=== PATIENT | female | born 1985 | race Caucasian/White ===

== ENCOUNTER 2018-08-06 05:17 | Inpatient (IN) | payer BC, OTHER ==
[~2018-08-06] VITALS: Ht 172.7 cm; Wt 103.7 kg
--- NOTE | 2018-08-06 05:52 | PHYS DOC ---
Past Medical History Past Medical History: No Pertinent History (EDGARDO BRYANT MD) Past Surgical History: Cholecystectomy, Tonsillectomy (EDGARDO BRYANT MD) Alcohol Use: Occasionally Drug Use: None (EDGARDO BRYANT MD) Adult General Chief Complaint Chief Complaint: NAUSEA/VOMITING/DIARRHA HPI HPI Patient is a 33 year old female was presenting with nausea vomiting nonbloody. has not passed gas or had a bowel movement since pain started. brought in by ambulance multiple episodes of several. 8 the same food as everybody else apparently blood pressure was 100/60 with the paramedics symptoms are moderate slowly worsening with time onset a few hours prior to arrival. at home was getting hot, thought she was going to pain epigastric in nature, preceded the vomiting, radiates to the back. sharp comes and goes 8/10 in maximum , constant dull pain 3/10. no sick contacts (EDGARDO BRYANT MD) Review of Systems Review of Systems Constitutional: Eyes: Denies change in visual acuity, redness, or eye pain [] HENT: Denies nasal congestion or sore throat [] Respiratory: Denies cough or shortness of breath [] Cardiovascular: No additional information not addressed in HPI [] Neurologic: Denies headache, focal weakness or sensory changes [] Endocrine: Denies polyuria or polydipsia [] All other systems were reviewed and found to be within normal limits, except as documented in this note. (EDGARDO BRYANT MD) Current Medications Current Medications Current Medications Medications (Trade) Dose Ordered Sig/Muriel Start Time Stop Time Status Last Admin Dose Admin Ciprofloxacin/ Dextrose 200 ml @ 200 mls/hr 1X ONCE 08/06/18 09:30 08/06/18 10:29 Fentanyl Citrate (Fentanyl 2ml Vial) 75 mcg 1X ONCE 08/06/18 07:00 08/06/18 07:01 DC 08/06/18 07:10 75 MCG Info (CONTRAST GIVEN -- Rx MONITORING) 1 each PRN DAILY PRN 08/06/18 06:45 08/08/18 06:44 Iohexol (Omnipaque 300 Mg/ml) 75 ml 1X ONCE 08/06/18 07:00 08/06/18 07:01 DC 08/06/18 07:00 75 ML Metronidazole 100 ml @ 100 mls/hr 1X ONCE 08/06/18 08:45 08/06/18 09:44 08/06/18 09:25 100 MLS/HR Morphine Sulfate (Morphine Sulfate) 4 mg PRN Q3HRS PRN 08/06/18 09:15 08/07/18 09:14 Ondansetron HCl (Zofran) 4 mg PRN Q8HRS PRN 08/06/18 09:15 08/07/18 09:14 Sodium Chloride 1,000 ml @ 100 mls/hr Q10H 08/06/18 09:15 08/07/18 09:14 (AYDE MASSEY DO) Allergies Allergies Allergies Coded Allergies Type Severity Reaction Last Updated Verified No Known Drug Allergies 08/06/18 No (AYDE MASSEY DO) Physical Exam Physical Exam Constitutional: Well developed, well nourished, no acute distress, non-toxic appearance. [] HENT: Normocephalic, atraumatic, bilateral external ears normal, oropharynx dry wants, no oral exudates, nose normal. [] Eyes: PERRLA, EOMI, conjunctiva normal, no discharge. [] Neck: Normal range of motion, no tenderness, supple, no stridor. [] Pulmonary: Normal respiratory effort no increased work of breathing no obvious chest wall trauma Abdomen: Bowel sounds abnormal decreased, soft, ttp noted epigastrium, no masses , no pulsatile masses. [] Skin: Warm, dry, no erythema, no rash. [] Back: No tenderness, no CVA tenderness. [] Extremities: No tenderness, no cyanosis, no clubbing, ROM intact, no edema. [] Neurologic: Alert and oriented X 3, normal motor function, normal sensory function, no focal deficits noted. [] Psychologic: Affect normal, judgement normal, mood normal. [] (EDGARDO BRYANT MD) Current Patient Data Vital Signs Vital Signs Date Time Temp Pulse Resp B/P (MAP) Pulse Ox O2 Delivery O2 Flow Rate FiO2 08/06/18 08:25 20 97 Room Air 08/06/18 05:18 98.0 107 126/70 (88) 98.0 (AYDE MASSEY DO) Lab Values Laboratory Tests Test 08/06/18 05:24 White Blood Count 17.6 x10^3/uL (4.0-11.0) H Red Blood Count 4.71 x10^6/uL (3.50-5.40) Hemoglobin 14.5 g/dL (12.0-15.5) Hematocrit 42.8 % (36.0-47.0) Mean Corpuscular Volume 91 fL (79-100) Mean Corpuscular Hemoglobin 31 pg (25-35) Mean Corpuscular Hemoglobin Concent 34 g/dL (31-37) Red Cell Distribution Width 12.7 % (11.5-14.5) Platelet Count 262 x10^3/uL (140-400) Neutrophils (%) (Auto) 91 % (31-73) H Lymphocytes (%) (Auto) 4 % (24-48) L Monocytes (%) (Auto) 5 % (0-9) Eosinophils (%) (Auto) 0 % (0-3) Basophils (%) (Auto) 0 % (0-3) Neutrophils # (Auto) 16.0 x10^3uL (1.8-7.7) H Lymphocytes # (Auto) 0.7 x10^3/uL (1.0-4.8) L Monocytes # (Auto) 0.9 x10^3/uL (0.0-1.1) Eosinophils # (Auto) 0.0 x10^3/uL (0.0-0.7) Basophils # (Auto) 0.0 x10^3/uL (0.0-0.2) Segmented Neutrophils % 88 % (35-66) H Lymphocytes % 4 % (24-48) L Monocytes % 8 % (0-10) Platelet Estimate Adequate (ADEQUATE) Platelet Clumps, EDTA Present Sodium Level 143 mmol/L (136-145) Potassium Level 4.2 mmol/L (3.5-5.1) Chloride Level 104 mmol/L (98-107) Carbon Dioxide Level 28 mmol/L (21-32) Anion Gap 11 (6-14) Blood Urea Nitrogen 15 mg/dL (7-20) Creatinine 1.0 mg/dL (0.6-1.0) Estimated GFR (Cockcroft-Gault) 64.7 BUN/Creatinine Ratio 15 (6-20) Glucose Level 169 mg/dL (70-99) H Calcium Level 8.6 mg/dL (8.5-10.1) Total Bilirubin 0.6 mg/dL (0.2-1.0) Aspartate Amino Transferase (AST) 17 U/L (15-37) Alanine Aminotransferase (ALT) 32 U/L (14-59) Alkaline Phosphatase 75 U/L (46-116) Total Protein 7.5 g/dL (6.4-8.2) Albumin 3.8 g/dL (3.4-5.0) Albumin/Globulin Ratio 1.0 (1.0-1.7) Lipase 113 U/L (73-393) Laboratory Tests 08/06/18 05:24 Laboratory Tests 08/06/18 05:24 (AYDE MASSEY DO) Lab Values Laboratory Tests Test 08/06/18 05:24 White Blood Count 17.6 x10^3/uL (4.0-11.0) H Red Blood Count 4.71 x10^6/uL (3.50-5.40) Hemoglobin 14.5 g/dL (12.0-15.5) Hematocrit 42.8 % (36.0-47.0) Mean Corpuscular Volume 91 fL (79-100) Mean Corpuscular Hemoglobin 31 pg (25-35) Mean Corpuscular Hemoglobin Concent 34 g/dL (31-37) Red Cell Distribution Width 12.7 % (11.5-14.5) Platelet Count 262 x10^3/uL (140-400) Neutrophils (%) (Auto) 91 % (31-73) H Lymphocytes (%) (Auto) 4 % (24-48) L Monocytes (%) (Auto) 5 % (0-9) Eosinophils (%) (Auto) 0 % (0-3) Basophils (%) (Auto) 0 % (0-3) Neutrophils # (Auto) 16.0 x10^3uL (1.8-7.7) H Lymphocytes # (Auto) 0.7 x10^3/uL (1.0-4.8) L Monocytes # (Auto) 0.9 x10^3/uL (0.0-1.1) Eosinophils # (Auto) 0.0 x10^3/uL (0.0-0.7) Basophils # (Auto) 0.0 x10^3/uL (0.0-0.2) Segmented Neutrophils % 88 % (35-66) H Lymphocytes % 4 % (24-48) L Monocytes % 8 % (0-10) Platelet Estimate Adequate (ADEQUATE) Platelet Clumps, EDTA Present Sodium Level 143 mmol/L (136-145) Potassium Level 4.2 mmol/L (3.5-5.1) Chloride Level 104 mmol/L (98-107) Carbon Dioxide Level 28 mmol/L (21-32) Anion Gap 11 (6-14) Blood Urea Nitrogen 15 mg/dL (7-20) Creatinine 1.0 mg/dL (0.6-1.0) Estimated GFR (Cockcroft-Gault) 64.7 BUN/Creatinine Ratio 15 (6-20) Glucose Level 169 mg/dL (70-99) H Calcium Level 8.6 mg/dL (8.5-10.1) Total Bilirubin 0.6 mg/dL (0.2-1.0) Aspartate Amino Transferase (AST) 17 U/L (15-37) Alanine Aminotransferase (ALT) 32 U/L (14-59) Alkaline Phosphatase 75 U/L (46-116) Total Protein 7.5 g/dL (6.4-8.2) Albumin 3.8 g/dL (3.4-5.0) Albumin/Globulin Ratio 1.0 (1.0-1.7) Lipase 113 U/L (73-393) Laboratory Tests 08/06/18 05:24 Laboratory Tests 08/06/18 05:24 (EDGARDO BRYANT MD) EKG EKG [] (EDGARDO BRYANT MD) Radiology/Procedures Radiology/Procedures [] (EDGARDO BRYANT MD) Radiology/Procedures [facility] [address] [place], [place] [id number] IMAGING REPORT Signed PATIENT: AUTUMN GONZALEZ ACCOUNT: [id number] : 1985 LOCATION: ER AGE: 33 SEX: F EXAM STATUS: REG ER ORD. PHYSICIAN: EDGARDO BRYANT MD REASON: diffuse pain, vomiting, r/o sbo. wait for upreg/creatinine. PROCEDURE: CT ABD PELV W/ IV CONTRST ONLY PQRS Compliance statement: One or more of the following individualized dose reduction techniques were utilized for this examination: 1. Automated exposure control. 2. Adjustment of the mA and/or kV according to patient size. 3. Use of iterative reconstruction technique. Indication:Severe upper abdominal pain. No prior. Inj 75ml Omni 300 TECHNIQUE: CT abdomen and pelvis with IV contrast with multiplanar reformats. COMPARISON: None FINDINGS: Heart is normal in size. No pericardial or pleural effusion. Clear lung bases. Liver, spleen, pancreas, adrenals and kidneys are within normal limits. No enlarged retroperitoneal or pelvic adenopathy. No free pelvic fluid or ascites. No bowel obstruction. There is long segment circumferential wall thickening of the small bowel loops. Appendix is not seen. Anteverted uterus. Urinary bladder within normal limits. No pneumoperitoneum. No suspicious bony lesion. IMPRESSION: 1. No bowel obstruction. Long segment circumferential thickening of the small bowel may be secondary to enteritis. Electronically signed by: Luca Gonsalves DO (08/06/2018 8:22 AM) [facility] DICTATED and SIGNED BY: LUCA GONSALVES DO DATE: 08/06/18821 (AYDE MASSEY DO) Course & Med Decision Making Course & Med Decision Making Pertinent Labs and Imaging studies reviewed. (See chart for details) []n/v/abdo pain, no diarrhea. hx of abdo surgeries, decreased bowel sounds and no flatus will get labs, fluids,ct a/p s/o massey 6am (EDGARDO BRYANT MD) Dragon Disclaimer Dragon Disclaimer This electronic medical record was generated, in whole or in part, using a voice recognition dictation system. (EDGARDO BRYANT MD) Departure Departure Impression: Primary Impression: Nausea & vomiting Additional Impressions: Enteritis Intractable abdominal pain Disposition: 09 ADMITTED INPATIENT Admitting Physician: Aquiles Luna (AYDE MASSEY DO) Condition: STABLE Referrals: NO PCP (PCP) Scripts Hydrocodone Bit/Acetaminophen (HYDROCODONE-APAP 5-325 ) 1 Tab Tablet 1 TAB PO PRN Q4HRS PRN for PAIN for 6 Days, #15 TAB Prov: ISABELLA GIMENEZ MD 08/08/18 Lactobacillus Rhamnosus Gg (CULTURELLE) 1 Each Cap.sprink 1 CAP PO BID for Colon asya for 30 Days, #60 CAP Prov: ISABELLA GIMENEZ MD 08/08/18 [Pantoprazole] 40 MG TABLET.DR No Conflict Check 40 MG PO BIDAC for Reflux for 30 Days, #60 Prov: ISABELLA GIMENEZ MD 08/08/18 Bisacodyl (BISACODYL) 5 Mg Tablet. 10 MG PO PRN DAILY PRN for CONSTIPATION 3RD CHOICE for 10 Days, #10 TAB.SR Prov: ISABELLA GIMENEZ MD 08/08/18 Problem Qualifiers EDGARDO BRYANT MD Aug 06, 2018 05:52 AYDE MASSEY DO Aug 06, 2018 08:31
[2018-08-06 06:11] LABS: BASO % 0 % (0-3); EOS % 0 % (0-3); HEMATOCRIT 42.8 % (36.0-47.0); HEMOGLOBIN 14.5 g/dL (12.0-15.5); LYMPH # 0.7 x10^3/uL (1.0-4.8); LYMPH % 4 % (24-48); MEAN CORPUSCULAR HEMOGLOBIN 31 pg (25-35); MEAN CORPUSCULAR HGB CONC 34 g/dL (31-37); MEAN CORPUSCULAR VOLUME 91 fL (79-100); MONO # 0.9 x10^3/uL (0.0-1.1); MONO % 5 % (0-9); NEUT % 91 % (31-73); PLATELET COUNT 262 x10^3/uL (140-400); RED BLOOD COUNT 4.71 x10^6/uL (3.50-5.40); RED CELL DISTRIBUTION WIDTH 12.7 % (11.5-14.5); WHITE BLOOD COUNT 17.6 x10^3/uL (4.0-11.0)
[2018-08-06 06:25] LABS: CALCIUM 8.6 mg/dL (8.5-10.1); GFR 64.7; POTASSIUM 4.2 mmol/L (3.5-5.1)
[2018-08-06] MEDS ORDERED: IV NORMAL SALINE 1000ML BAG 1,000 ML IV ONE (06:30)
[2018-08-06] MEDS ORDERED: ONDANSETRON PF 4 MG/2 ML VIAL. IV ONE ×2 (06:30→09:30)
[2018-08-06] MEDS ORDERED: fentaNYL PF VIAL 100 MCG/2 ML VIAL IV ONE ×2 (06:30→07:00)
[2018-08-06 06:31] LABS: ALBUMIN 3.8 g/dL (3.4-5.0); TOTAL BILIRUBIN 0.6 mg/dL (0.2-1.0); TOTAL PROTEIN 7.5 g/dL (6.4-8.2)
[2018-08-06] MEDS ORDERED: CONTRAST GIVEN. MC PRN (06:45)
[2018-08-06] MEDS ORDERED: IOHEXOL 300 MG/ML 100ML VIAL. IV ONE (07:00)
[2018-08-06 08:15] LABS: % LYMPHS 4 % (24-48); % MONOS 8 % (0-10); % SEGS 88 % (35-66); PLT ESTIMATE ADEQUATE (ADEQUATE)
[2018-08-06 08:16] LABS: PLATELET CLUMP PRESENT
--- NOTE | 2018-08-06 08:23 | EKG ---
[facility] [address] [place] [address] Test Date: 2018-08-06 Test Time: 06:25:50 Pat Name: AUTUMN GONZALEZ Department: Room: Gender: F [employer] Counter Manager: : 1985 Requested By: EDGARDO BRYANT Order Number: [id number] Reading MD: Jaxon Ni MD Measurements Intervals [place] Rate: 102 P: 55 KS: 154 QRS: 23 QRSD: 86 T: 20 QT: 356 QTc: 468 Interpretive Statements SINUS TACHYCARDIA Electronically Signed On 08-08-2018 16:21:36 CDT by Jaxon iN MD
--- NOTE | 2018-08-06 08:25 | RAD ---
PQRS Compliance statement: One or more of the following individualized dose reduction techniques were utilized for this examination: 1. Automated exposure control. 2. Adjustment of the mA and/or kV according to patient size. 3. Use of iterative reconstruction technique. Indication:Severe upper abdominal pain. No prior. Inj 75ml Omni 300 TECHNIQUE: CT abdomen and pelvis with IV contrast with multiplanar reformats. COMPARISON: None FINDINGS: Heart is normal in size. No pericardial or pleural effusion. Clear lung bases. Liver, spleen, pancreas, adrenals and kidneys are within normal limits. No enlarged retroperitoneal or pelvic adenopathy. No free pelvic fluid or ascites. No bowel obstruction. There is long segment circumferential wall thickening of the small bowel loops. Appendix is not seen. Anteverted uterus. Urinary bladder within normal limits. No pneumoperitoneum. No suspicious bony lesion. IMPRESSION: 1. No bowel obstruction. Long segment circumferential thickening of the small bowel may be secondary to enteritis. Electronically signed by: Luca Gonsalves DO (08/06/2018 8:22 AM) [facility]
[2018-08-06] MEDS ORDERED: MORPHINE SULFATE 4 MG/ML VIAL. IV ONE (08:30)
[2018-08-06] MEDS ORDERED: ONDANSETRON PF 4 MG/2 ML VIAL. IV PRN (09:15)
[2018-08-06] MEDS ORDERED: CIPROFLOXACIN 400MG PREMIX 200 ML IV ONE (09:30)
[2018-08-06] MEDS: MORPHINE SULFATE 4 MG/ML VIAL. IV PRN ×4 (09:57→20:57)
[2018-08-06 11:00] VITALS: BP 108/53
[2018-08-06] MEDS: IV NORMAL SALINE 1000ML BAG 1,000 ML IV SCH ×2 (11:56→20:55)
[2018-08-06] MEDS: cefTRIAXone IV Push 1 GM VIAL. IVP SCH (11:57)
--- NOTE | 2018-08-06 12:10 | PDOC2 ---
GI CONSULT Reason For Consult: Enteritis, abd pain, n/v HPI: HPI: 33 y/o female admitted through ER. From [place] - visiting family in [place] area, mother Jessica present. Lunch from [employer] yesterday, felt a little ill throughout the afternoon, Tums helped. Then ate pizza for dinner. Awoke during the night, significant vomiting associated w/ upper/mid abdominal pain ( "tight wave" - radiates bilaterally to back). She "kept passing out" during this which apparently is not unusual for her when in pain. Recalls normal EKG within the past year. Occasional heartburn related to certain foods. No dysphagia. After cholecystectomy (for stones), had "complications" including n/v and diarrhea - those symptoms improved over the years; however, current symptoms are similar ( though less severe). No hematemesis, hematochezia, or melena. Last BM was normal yesterday - probiotics help keep her regular. Intentionally lost 8 pounds over the past month by avoiding carbs. No previous EGD or colonoscopy. No liver or pancreas history. PRN ibuprofen use for menstrual cramps and headaches. Labs significant for elevated WBC. CT noted possible enteritis. Looks like was given Flagyl in the ER, had Cipro ordered, but changed to Rocephin per primary. PMH: PMH: tonsillectomy, cholecystectomy FH: Family History: Cancer (maternal uncle - renal, MGF - lung, PGF - colon), Other (father - GB disease) Social History: Smoke: No ALCOHOL: occassional Drugs: None ROS: GEN: Denies fevers, chills, sweats HEENT: Denies blurred vision, sore throat CV: Denies chest pain RESP: Denies shortness of air, cough GI: Per HPI : Denies hematuria, dysuria ENDO: +weight loss NEURO: Denies confusion, dizziness MSK: Denies weakness, joint pain/swelling SKIN: Denies jaundice, pruritus Vitals: Vitals: Vital Signs Date Time Temp Pulse Resp B/P (MAP) Pulse Ox O2 Delivery O2 Flow Rate FiO2 08/06/18 11:29 18 93 Room Air 08/06/18 11:00 98.4 103 108/53 (71) 98.4 Labs: Labs: Laboratory Tests Test 08/06/18 05:24 White Blood Count 17.6 x10^3/uL (4.0-11.0) Red Blood Count 4.71 x10^6/uL (3.50-5.40) Hemoglobin 14.5 g/dL (12.0-15.5) Hematocrit 42.8 % (36.0-47.0) Mean Corpuscular Volume 91 fL (79-100) Mean Corpuscular Hemoglobin 31 pg (25-35) Mean Corpuscular Hemoglobin Concent 34 g/dL (31-37) Red Cell Distribution Width 12.7 % (11.5-14.5) Platelet Count 262 x10^3/uL (140-400) Neutrophils (%) (Auto) 91 % (31-73) Lymphocytes (%) (Auto) 4 % (24-48) Monocytes (%) (Auto) 5 % (0-9) Eosinophils (%) (Auto) 0 % (0-3) Basophils (%) (Auto) 0 % (0-3) Neutrophils # (Auto) 16.0 x10^3uL (1.8-7.7) Lymphocytes # (Auto) 0.7 x10^3/uL (1.0-4.8) Monocytes # (Auto) 0.9 x10^3/uL (0.0-1.1) Eosinophils # (Auto) 0.0 x10^3/uL (0.0-0.7) Basophils # (Auto) 0.0 x10^3/uL (0.0-0.2) Segmented Neutrophils % 88 % (35-66) Lymphocytes % 4 % (24-48) Monocytes % 8 % (0-10) Platelet Estimate Adequate (ADEQUATE) Platelet Clumps, EDTA Present Sodium Level 143 mmol/L (136-145) Potassium Level 4.2 mmol/L (3.5-5.1) Chloride Level 104 mmol/L (98-107) Carbon Dioxide Level 28 mmol/L (21-32) Anion Gap 11 (6-14) Blood Urea Nitrogen 15 mg/dL (7-20) Creatinine 1.0 mg/dL (0.6-1.0) Estimated GFR (Cockcroft-Gault) 64.7 BUN/Creatinine Ratio 15 (6-20) Glucose Level 169 mg/dL (70-99) Calcium Level 8.6 mg/dL (8.5-10.1) Total Bilirubin 0.6 mg/dL (0.2-1.0) Aspartate Amino Transf (AST/SGOT) 17 U/L (15-37) Alanine Aminotransferase (ALT/SGPT) 32 U/L (14-59) Alkaline Phosphatase 75 U/L (46-116) Total Protein 7.5 g/dL (6.4-8.2) Albumin 3.8 g/dL (3.4-5.0) Albumin/Globulin Ratio 1.0 (1.0-1.7) Lipase 113 U/L (73-393) Allergies: Coded Allergies: No Known Drug Allergies (Unverified , 08/06/18) Medications: Current Medications Medications (Trade) Dose Ordered Sig/Muriel Route PRN Reason Start Time Stop Time Status Last Admin Dose Admin Sodium Chloride 1,000 ml @ 1,000 mls/hr 1X ONCE IV 08/06/18 06:30 08/06/18 07:29 DC 08/06/18 06:20 Ondansetron HCl (Zofran) 4 mg 1X ONCE IV 08/06/18 06:30 08/06/18 06:31 DC 08/06/18 06:18 Fentanyl Citrate (Fentanyl 2ml Vial) 50 mcg 1X ONCE IV 08/06/18 06:30 08/06/18 06:31 DC 08/06/18 06:19 Iohexol (Omnipaque 300 Mg/ml) 75 ml 1X ONCE IV 08/06/18 07:00 08/06/18 07:01 DC 08/06/18 07:00 Fentanyl Citrate (Fentanyl 2ml Vial) 75 mcg 1X ONCE IV 08/06/18 07:00 08/06/18 07:01 DC 08/06/18 07:10 Morphine Sulfate (Morphine Sulfate) 4 mg 1X ONCE IV 08/06/18 08:30 08/06/18 08:31 DC 08/06/18 08:25 Metronidazole 100 ml @ 100 mls/hr 1X ONCE IV 08/06/18 08:45 08/06/18 09:44 DC 08/06/18 09:25 Ondansetron HCl (Zofran) 8 mg 1X ONCE IV 08/06/18 09:30 08/06/18 09:31 DC 08/06/18 09:22 Morphine Sulfate (Morphine Sulfate) 4 mg PRN Q3HRS PRN IV PAIN 08/06/18 09:15 08/07/18 09:14 08/06/18 11:29 Imaging: Imaging: CT A/P FINDINGS: Heart is normal in size. No pericardial or pleural effusion. Clear lung bases. Liver, spleen, pancreas, adrenals and kidneys are within normal limits. No enlarged retroperitoneal or pelvic adenopathy. No free pelvic fluid or ascites. No bowel obstruction. There is long segment circumferential wall thickening of the small bowel loops. Appendix is not seen. Anteverted uterus. Urinary bladder within normal limits. No pneumoperitoneum. No suspicious bony lesion. IMPRESSION: 1. No bowel obstruction. Long segment circumferential thickening of the small bowel may be secondary to enteritis. PE: GEN: NAD HEENT: Atraumatic, PERRL LUNGS: CTAB HEART: RRR ABD: BS quiet, S/ND, epigastric/periumbilical discomfort - less to BUQ EXTREMITY: No edema SKIN: No rashes, no jaundice NEURO/PSYCH: A & O 3 A/P: A/P: Vomiting, abd pain, ?syncope Leukocytosis Abnormal CT Occasional heartburn S/p cholecystectomy -- ?infectious Supportive care - can try clears, will defer IVF to primary. Empiric acid-back feeder plywood layup line - IV for now, can change to PO as able. Will review atbx w/ Dr. Dash. Defer ?syncope to Dr. Luna. MARLA QUIROGA Aug 06, 2018 12:10
--- NOTE | 2018-08-06 12:57 | HP ---
ADMIT DATE: 08/06/2018 CHIEF COMPLAINT: Abdominal pain, nausea, vomiting and diarrhea. HISTORY OF PRESENT ILLNESS: The patient is a pleasant 33-year-old healthy female who presents with the above chief complaints. She denies being around any people that have any gastrointestinal symptoms, but her was came on yesterday. She rates it 10. She has associated anxiety. Food makes it worse. Sitting still makes it better. I have discussed the case with the ER physician. We are going to admit the patient and consult GI. It should be noted that her CAT scan is showing enteritis and she has a leukocytosis of 17,000. PAST MEDICAL HISTORY: Tonsillectomy, cholecystectomy. ALLERGIES: None. FAMILY HISTORY: Hypertension. SOCIAL HISTORY: She does not drink, smoke or take drugs. She works from home, doing customer service. MEDICATIONS: Reviewed, please refer to the MRAD. REVIEW OF SYSTEMS: GENERAL: No history of weight change, weakness or fevers. SKIN: No bruising, hair changes or rashes. EYES: No blurred, double or loss of vision. NOSE AND THROAT: No history of nosebleeds, hoarseness or sore throat. HEART: No history of palpitations, chest pain or shortness of breath on exertion. LUNGS: Denies cough, hemoptysis, wheezing or shortness of breath. GASTROINTESTINAL: She complains of abdominal pain. GENITOURINARY: No history of frequency, urgency, hesitancy or nocturia. NEUROLOGIC: Denies history of numbness, tingling, tremor or weakness. PSYCHIATRIC: No history of panic, anxiety or depression. ENDOCRINE: No history of heat or cold intolerance, polyuria or polydipsia. EXTREMITIES: Denies muscle weakness, joint pain, pain on walking or stiffness. PHYSICAL EXAMINATION: VITAL SIGNS: Temperature afebrile, pulse 98, respirations 18, blood pressure 140/90. GENERAL: She is alert. HEART: Normal S1, S2. LUNGS: Clear. ABDOMEN: Soft. EXTREMITIES: No edema. SKIN: No rash. ENDOCRINE: No thyromegaly. LYMPHATICS: No cervical nodes. HEMATOPOIETIC: No bruising. PSYCHIATRIC: She is stable. LABORATORY DATA: White count 17. Her glucose is 169. ASSESSMENT AND PLAN: Enteritis with leukocytosis and hyperglycemia. The patient has been admitted. We will start IV Rocephin, consult GI, IV fluids, deep venous thrombosis prophylaxis, p.r.n. suze Vasquez.rAshlynn. narcotics, home medications. JASWANT HODGES DO DR: ELIAS/zoila JOB#: [id number] / [id number]
[2018-08-06] MEDS: PANTOPRAZOLE IV PUSH 40 MG VIAL. IVP SCH (14:06)
[2018-08-06 15:00] VITALS: BP 105/56
[2018-08-06 19:00] VITALS: BP 104/57
[2018-08-06] MEDS: LACTOBACILLUS RHAMNOSUS GG 1 CAPSULE. PO SCH (20:55)
[2018-08-06 21:12] LABS: BILIRUBIN,URINE SMALL (NEG); CLARITY,URINE CLOUDY; COLOR,URINE YELLOW; NITRITE,URINE NEGATIVE (NEG); PH,URINE 5.5; PROTEIN,URINE NEGATIVE (NEG-TRACE)
[2018-08-06 21:18] LABS: SQUAMOUS EPITHELIAL CELL,UR MANY /LPF
[2018-08-06 21:20] LABS: BACTERIA,URINE FEW /HPF (0-FEW)
[2018-08-06 23:00] VITALS: BP 102/56
[2018-08-07 03:00] VITALS: BP 116/61
[2018-08-07 04:05] LABS: HEMATOCRIT 34.4 % (36.0-47.0); HEMOGLOBIN 11.6 g/dL (12.0-15.5); RED BLOOD COUNT 3.76 x10^6/uL (3.50-5.40); RED CELL DISTRIBUTION WIDTH 13.1 % (11.5-14.5); WHITE BLOOD COUNT 8.1 x10^3/uL (4.0-11.0)
[2018-08-07 04:28] LABS: ALBUMIN 2.8 g/dL (3.4-5.0); ALBUMIN/GLOBULIN RATIO 0.9 (1.0-1.7); CALCIUM 7.6 mg/dL (8.5-10.1); CREATININE 0.8 mg/dL (0.6-1.0); GFR 83.7; POTASSIUM 3.2 mmol/L (3.5-5.1); TOTAL BILIRUBIN 0.6 mg/dL (0.2-1.0)
[2018-08-07] MEDS: IV NORMAL SALINE 1000ML BAG 1,000 ML IV SCH ×3 (06:03→20:26)
[2018-08-07 07:00] VITALS: BP 100/53
[2018-08-07] MEDS: PANTOPRAZOLE IV PUSH 40 MG VIAL. IVP SCH (07:16)
[2018-08-07] MEDS: MORPHINE SULFATE 4 MG/ML VIAL. IV PRN (07:45)
--- NOTE | 2018-08-07 07:55 | PDOC ---
PROGRESS NOTES Chief Complaint Chief Complaint Vomiting, abd pain, ?syncope Leukocytosis Abnormal CT Occasional heartburn S/p cholecystectomy History of Present Illness History of Present Illness 33 y/o female admitted through ER. From [place] - visiting family in area, present. Lunch from [employer] day prior to admit, felt a little ill throughout the afternoon, Tums helped. Then ate pizza for dinner. Awoke during the night, significant vomiting associated w/ upper/mid abdominal pain, radiated bilaterally to back. She "kept passing out" during this which apparently is not unusual for her when in pain. Recalls normal EKG within the past year. Occasional heartburn related to certain foods. No dysphagia. After cholecystectomy (for stones), had n/v and diarrhea. No hematemesis, hematochezia , or melena. Last BM was normal day prior to admit - probiotics help keep her regular. Intentionally lost 8 pounds over the past month by avoiding carbs. No previous EGD or colonoscopy. No liver or pancreas history. PRN ibuprofen use for menstrual cramps and headaches. Labs significant for elevated WBC. CT noted possible enteritis. Looks like was given Flagyl in the ER and Cipro ordered, but changed to Rocephin after she developed a facial rash. Feeling better today. Tolerating clears w/o vomiting though has some nausea. Says not drinking a whole lot. Upper abd pain is better. No stools. has questions about IBS vs IBD. Facial rash is much better. Plan: ADAT F/u GI recs Transition to oral pain medications Possible discharge later today, early tomorrow morning. Vitals Vitals Vital Signs Date Time Temp Pulse Resp B/P (MAP) Pulse Ox O2 Delivery O2 Flow Rate FiO2 08/07/18 07:45 18 Room Air 08/07/18 03:00 98.7 79 116/61 (60) 96 98.7 Physical Exam General: Alert, Oriented X3, Cooperative, mild distress Heart: Regular rate, Normal S1, Normal S2, No murmurs, Gallops Lungs: Clear Abdomen: Normal bowel sounds, Soft, No hepatosplenomegaly, No masses, Other ( Mild LLQ tender) Extremities: No clubbing, No cyanosis, No edema, Normal pulses Skin: No rashes, No breakdown, No significant lesion Labs LABS Laboratory Tests Test 08/06/18 21:01 08/07/18 02:35 Urine Collection Type Unknown Urine Color Yellow Urine Clarity Cloudy Urine pH 5.5 Urine Specific [place] >=1.030 Urine Protein Negative mg/dL (NEG-TRACE) Urine Glucose (UA) Negative mg/dL (NEG) Urine Ketones (Stick) 15 mg/dL (NEG) Urine Blood Negative (NEG) Urine Nitrite Negative (NEG) Urine Bilirubin Small (NEG) Urine Urobilinogen Dipstick 1.0 mg/dL (0.2 mg/dL) Urine Leukocyte Esterase Negative (NEG) Urine RBC 1-2 /HPF (0-2) Urine WBC 1-4 /HPF (0-4) Urine Squamous Epithelial Cells Many /LPF Urine Bacteria Few /HPF (0-FEW) Urine Mucus Marked /LPF White Blood Count 8.1 x10^3/uL (4.0-11.0) Red Blood Count 3.76 x10^6/uL (3.50-5.40) Hemoglobin 11.6 g/dL (12.0-15.5) Hematocrit 34.4 % (36.0-47.0) Mean Corpuscular Volume 91 fL (79-100) Mean Corpuscular Hemoglobin 31 pg (25-35) Mean Corpuscular Hemoglobin Concent 34 g/dL (31-37) Red Cell Distribution Width 13.1 % (11.5-14.5) Platelet Count 208 x10^3/uL (140-400) Sodium Level 143 mmol/L (136-145) Potassium Level 3.2 mmol/L (3.5-5.1) Chloride Level 107 mmol/L (98-107) Carbon Dioxide Level 28 mmol/L (21-32) Anion Gap 8 (6-14) Blood Urea Nitrogen 8 mg/dL (7-20) Creatinine 0.8 mg/dL (0.6-1.0) Estimated GFR (Cockcroft-Gault) 83.7 BUN/Creatinine Ratio 10 (6-20) Glucose Level 94 mg/dL (70-99) Calcium Level 7.6 mg/dL (8.5-10.1) Total Bilirubin 0.6 mg/dL (0.2-1.0) Aspartate Amino Transf (AST/SGOT) 18 U/L (15-37) Alanine Aminotransferase (ALT/SGPT) 24 U/L (14-59) Alkaline Phosphatase 54 U/L (46-116) Total Protein 6.0 g/dL (6.4-8.2) Albumin 2.8 g/dL (3.4-5.0) Albumin/Globulin Ratio 0.9 (1.0-1.7) Assessment and Plan Assessmemt and Plan Problems Medical Problems: (1) Enteritis Status: Acute (2) Intractable abdominal pain Status: Acute (3) Nausea & vomiting Status: Acute Comment Review of Relevant I have reviewed the following items ulpe (where applicable) has been applied. Labs Laboratory Tests Test 08/06/18 05:24 08/06/18 21:01 08/07/18 02:35 White Blood Count 17.6 x10^3/uL (4.0-11.0) 8.1 x10^3/uL (4.0-11.0) Red Blood Count 4.71 x10^6/uL (3.50-5.40) 3.76 x10^6/uL (3.50-5.40) Hemoglobin 14.5 g/dL (12.0-15.5) 11.6 g/dL (12.0-15.5) Hematocrit 42.8 % (36.0-47.0) 34.4 % (36.0-47.0) Mean Corpuscular Volume 91 fL (79-100) 91 fL (79-100) Mean Corpuscular Hemoglobin 31 pg (25-35) 31 pg (25-35) Mean Corpuscular Hemoglobin Concent 34 g/dL (31-37) 34 g/dL (31-37) Red Cell Distribution Width 12.7 % (11.5-14.5) 13.1 % (11.5-14.5) Platelet Count 262 x10^3/uL (140-400) 208 x10^3/uL (140-400) Neutrophils (%) (Auto) 91 % (31-73) Lymphocytes (%) (Auto) 4 % (24-48) Monocytes (%) (Auto) 5 % (0-9) Eosinophils (%) (Auto) 0 % (0-3) Basophils (%) (Auto) 0 % (0-3) Neutrophils # (Auto) 16.0 x10^3uL (1.8-7.7) Lymphocytes # (Auto) 0.7 x10^3/uL (1.0-4.8) Monocytes # (Auto) 0.9 x10^3/uL (0.0-1.1) Eosinophils # (Auto) 0.0 x10^3/uL (0.0-0.7) Basophils # (Auto) 0.0 x10^3/uL (0.0-0.2) Segmented Neutrophils % 88 % (35-66) Lymphocytes % 4 % (24-48) Monocytes % 8 % (0-10) Platelet Estimate Adequate (ADEQUATE) Platelet Clumps, EDTA Present Sodium Level 143 mmol/L (136-145) 143 mmol/L (136-145) Potassium Level 4.2 mmol/L (3.5-5.1) 3.2 mmol/L (3.5-5.1) Chloride Level 104 mmol/L (98-107) 107 mmol/L (98-107) Carbon Dioxide Level 28 mmol/L (21-32) 28 mmol/L (21-32) Anion Gap 11 (6-14) 8 (6-14) Blood Urea Nitrogen 15 mg/dL (7-20) 8 mg/dL (7-20) Creatinine 1.0 mg/dL (0.6-1.0) 0.8 mg/dL (0.6-1.0) Estimated GFR (Cockcroft-Gault) 64.7 83.7 BUN/Creatinine Ratio 15 (6-20) 10 (6-20) Glucose Level 169 mg/dL (70-99) 94 mg/dL (70-99) Calcium Level 8.6 mg/dL (8.5-10.1) 7.6 mg/dL (8.5-10.1) Total Bilirubin 0.6 mg/dL (0.2-1.0) 0.6 mg/dL (0.2-1.0) Aspartate Amino Transf (AST/SGOT) 17 U/L (15-37) 18 U/L (15-37) Alanine Aminotransferase (ALT/SGPT) 32 U/L (14-59) 24 U/L (14-59) Alkaline Phosphatase 75 U/L (46-116) 54 U/L (46-116) Total Protein 7.5 g/dL (6.4-8.2) 6.0 g/dL (6.4-8.2) Albumin 3.8 g/dL (3.4-5.0) 2.8 g/dL (3.4-5.0) Albumin/Globulin Ratio 1.0 (1.0-1.7) 0.9 (1.0-1.7) Lipase 113 U/L (73-393) Urine Collection Type Unknown Urine Color Yellow Urine Clarity Cloudy Urine pH 5.5 Urine Specific [place] >=1.030 Urine Protein Negative mg/dL (NEG-TRACE) Urine Glucose (UA) Negative mg/dL (NEG) Urine Ketones (Stick) 15 mg/dL (NEG) Urine Blood Negative (NEG) Urine Nitrite Negative (NEG) Urine Bilirubin Small (NEG) Urine Urobilinogen Dipstick 1.0 mg/dL (0.2 mg/dL) Urine Leukocyte Esterase Negative (NEG) Urine RBC 1-2 /HPF (0-2) Urine WBC 1-4 /HPF (0-4) Urine Squamous Epithelial Cells Many /LPF Urine Bacteria Few /HPF (0-FEW) Urine Mucus Marked /LPF Laboratory Tests Test 08/06/18 21:01 08/07/18 02:35 Urine Collection Type Unknown Urine Color Yellow Urine Clarity Cloudy Urine pH 5.5 Urine Specific [place] >=1.030 Urine Protein Negative mg/dL (NEG-TRACE) Urine Glucose (UA) Negative mg/dL (NEG) Urine Ketones (Stick) 15 mg/dL (NEG) Urine Blood Negative (NEG) Urine Nitrite Negative (NEG) Urine Bilirubin Small (NEG) Urine Urobilinogen Dipstick 1.0 mg/dL (0.2 mg/dL) Urine Leukocyte Esterase Negative (NEG) Urine RBC 1-2 /HPF (0-2) Urine WBC 1-4 /HPF (0-4) Urine Squamous Epithelial Cells Many /LPF Urine Bacteria Few /HPF (0-FEW) Urine Mucus Marked /LPF White Blood Count 8.1 x10^3/uL (4.0-11.0) Red Blood Count 3.76 x10^6/uL (3.50-5.40) Hemoglobin 11.6 g/dL (12.0-15.5) Hematocrit 34.4 % (36.0-47.0) Mean Corpuscular Volume 91 fL (79-100) Mean Corpuscular Hemoglobin 31 pg (25-35) Mean Corpuscular Hemoglobin Concent 34 g/dL (31-37) Red Cell Distribution Width 13.1 % (11.5-14.5) Platelet Count 208 x10^3/uL (140-400) Sodium Level 143 mmol/L (136-145) Potassium Level 3.2 mmol/L (3.5-5.1) Chloride Level 107 mmol/L (98-107) Carbon Dioxide Level 28 mmol/L (21-32) Anion Gap 8 (6-14) Blood Urea Nitrogen 8 mg/dL (7-20) Creatinine 0.8 mg/dL (0.6-1.0) Estimated GFR (Cockcroft-Gault) 83.7 BUN/Creatinine Ratio 10 (6-20) Glucose Level 94 mg/dL (70-99) Calcium Level 7.6 mg/dL (8.5-10.1) Total Bilirubin 0.6 mg/dL (0.2-1.0) Aspartate Amino Transf (AST/SGOT) 18 U/L (15-37) Alanine Aminotransferase (ALT/SGPT) 24 U/L (14-59) Alkaline Phosphatase 54 U/L (46-116) Total Protein 6.0 g/dL (6.4-8.2) Albumin 2.8 g/dL (3.4-5.0) Albumin/Globulin Ratio 0.9 (1.0-1.7) Medications Current Medications Sodium Chloride 1,000 ml @ 1,000 mls/hr 1X ONCE IV Last administered on at 06:20; Start 08/06/18 at 06:30; Stop 08/06/18 at 07:29; Status DC Ondansetron HCl (Zofran) 4 mg 1X ONCE IV Last administered on 08/06/18at 06:18 ; Start 08/06/18 at 06:30; Stop 08/06/18 at 06:31; Status DC Fentanyl Citrate (Fentanyl 2ml Vial) 50 mcg 1X ONCE IV Last administered on at 06:19; Start 08/06/18 at 06:30; Stop 08/06/18 at 06:31; Status DC Iohexol (Omnipaque 300 Mg/ml) 75 ml 1X ONCE IV Last administered on 08/06/18at 07:00; Start 08/06/18 at 07:00; Stop 08/06/18 at 07:01; Status DC Info (CONTRAST GIVEN -- Rx MONITORING) 1 each PRN DAILY PRN MC SEE COMMENTS; Start 08/06/18 at 06:45; Stop 08/08/18 at 06:44 Fentanyl Citrate (Fentanyl 2ml Vial) 75 mcg 1X ONCE IV Last administered on 07:10; Start 08/06/18 at 07:00; Stop 08/06/18 at 07:01; Status DC Morphine Sulfate (Morphine Sulfate) 4 mg 1X ONCE IV Last administered on 08:25; Start 08/06/18 at 08:30; Stop 08/06/18 at 08:31; Status DC Metronidazole 100 ml @ 100 mls/hr 1X ONCE IV Last administered on 08/06/18 09:25; Start 08/06/18 at 08:45; Stop 08/06/18 at 09:44; Status DC Ondansetron HCl (Zofran) 8 mg 1X ONCE IV Last administered on 08/06/18 09:22 ; Start 08/06/18 at 09:30; Stop 08/06/18 at 09:31; Status DC Ondansetron HCl (Zofran) 4 mg PRN Q8HRS PRN IV NAUSEA/VOMITING Last administered on 08/07/18 07:27; Start 08/06/18 at 09:15; Stop 08/07/18 at 09:14 Morphine Sulfate (Morphine Sulfate) 4 mg PRN Q3HRS PRN IV PAIN Last administered on 08/07/18 07:45; Start 08/06/18 at 09:15; Stop 08/07/18 at 09:14 Sodium Chloride 1,000 ml @ 100 mls/hr Q10H IV Last administered on 08/07/18 06:03; Start 08/06/18 at 09:15; Stop 08/07/18 at 09:14 Ciprofloxacin/ Dextrose 200 ml @ 200 mls/hr 1X ONCE IV Last administered on at 14:03; Start 08/06/18 at 09:30; Stop 08/06/18 at 10:29; Status DC Ceftriaxone Sodium (Rocephin) 1 gm Q24H IVP Last administered on 08/06/18at 11: 57; Start 08/06/18 at 11:00 Pantoprazole Sodium (PROTONIX VIAL for IV PUSH) 40 mg DAILYAC IVP Last administered on 08/07/18at 07:16; Start 08/06/18 at 12:30 Lactobacillus Rhamnosus (Culturelle) 1 cap BID PO Last administered on at 20:55; Start 08/06/18 at 21:00 Vitals/I & O Vital Sign - Last 24 Hours 08/06/18 08/06/18 08/06/18 08/06/18 08:20 08:25 09:00 09:34 Pulse 102 104 106 Resp 20 20 20 20 B/P (MAP) 130/60 (83) 132/62 (85) 129/63 (85) Pulse Ox 94 97 95 94 O2 Delivery Room Air Room Air Room Air Room Air 08/06/18 08/06/18 08/06/18 08/06/18 09:57 11:00 11:10 11:29 Temp 98.4 98.4 Pulse 103 Resp 14 18 B/P (MAP) 108/53 (71) Pulse Ox 96 93 93 O2 Delivery Room Air Room Air Room Air Room Air 08/06/18 08/06/18 08/06/18 08/06/18 15:00 15:17 19:00 20:08 Temp 98.3 98.5 98.3 98.5 Pulse 100 83 Resp 18 20 20 B/P (MAP) 105/56 (72) 104/57 (73) Pulse Ox 94 94 95 O2 Delivery Room Air Room Air Room Air Room Air 08/06/18 08/06/18 08/06/18 08/07/18 20:57 21:50 23:00 03:00 Temp 98.7 98.7 98.7 98.7 Pulse 74 79 Resp 18 18 20 20 B/P (MAP) 102/56 (71) 116/61 (79) Pulse Ox 95 95 93 96 O2 Delivery Room Air Room Air Room Air Room Air 08/07/18 07:45 Resp 18 O2 Delivery Room Air Intake and Output 08/06/18 08/06/18 08/07/18 14:59 22:59 06:59 Intake Total 1100 ml 240 ml 500 ml Output Total 200 ml Balance 1100 ml 40 ml 500 ml ISABELLA GIMENEZ MD Aug 07, 2018 07:55
[2018-08-07] MEDS: LACTOBACILLUS RHAMNOSUS GG 1 CAPSULE. PO SCH ×2 (09:26→20:26)
--- NOTE | 2018-08-07 09:36 | PDOC ---
Subjective: Subjective: Feeling better today. Tolerating clears w/o vomiting though has some nausea. Says not drinking a whole lot. Upper abd pain is better. No stools. has questions about IBS vs IBD. Facial rash is much better. Objective: Vital Signs: Vital Signs Date Time Temp Pulse Resp B/P (MAP) Pulse Ox O2 Delivery O2 Flow Rate FiO2 08/07/18 08:15 18 Room Air 08/07/18 07:00 98.1 69 100/53 (69) 95 98.1 Labs: Laboratory Tests Test 08/06/18 21:01 08/07/18 02:35 Urine Collection Type Unknown Urine Color Yellow Urine Clarity Cloudy Urine pH 5.5 Urine Specific [place] >=1.030 Urine Protein Negative mg/dL Urine Glucose (UA) Negative mg/dL Urine Ketones (Stick) 15 mg/dL Urine Blood Negative Urine Nitrite Negative Urine Bilirubin Small Urine Urobilinogen Dipstick 1.0 mg/dL Urine Leukocyte Esterase Negative Urine RBC 1-2 /HPF Urine WBC 1-4 /HPF Urine Squamous Epithelial Cells Many /LPF Urine Bacteria Few /HPF Urine Mucus Marked /LPF White Blood Count 8.1 x10^3/uL Red Blood Count 3.76 x10^6/uL Hemoglobin 11.6 g/dL Hematocrit 34.4 % Mean Corpuscular Volume 91 fL Mean Corpuscular Hemoglobin 31 pg Mean Corpuscular Hemoglobin Concent 34 g/dL Red Cell Distribution Width 13.1 % Platelet Count 208 x10^3/uL Sodium Level 143 mmol/L Potassium Level 3.2 mmol/L Chloride Level 107 mmol/L Carbon Dioxide Level 28 mmol/L Anion Gap 8 Blood Urea Nitrogen 8 mg/dL Creatinine 0.8 mg/dL Estimated GFR (Cockcroft-Gault) 83.7 BUN/Creatinine Ratio 10 Glucose Level 94 mg/dL Calcium Level 7.6 mg/dL Total Bilirubin 0.6 mg/dL Aspartate Amino Transf (AST/SGOT) 18 U/L Alanine Aminotransferase (ALT/SGPT) 24 U/L Alkaline Phosphatase 54 U/L Total Protein 6.0 g/dL Albumin 2.8 g/dL Albumin/Globulin Ratio 0.9 PE: GEN: NAD LUNGS: HEART: ABD: NEURO/PSYCH: A & O 3 A/P: Nausea, upper abd discomfort Abnormal CT w/ enteritis Facial rash - better Hypokalemia - per primary -- Better today - tolerating clears though not eager to eat more yet. Discussed advancing diet as tolerated. She also mentions plans to transition to PO pain meds. When tolerating diet and pain managed w/ PO meds, okay to DC per primary. Okay to continue PPI. Follow-up w/ GI in [place] PRN. MARLA QUIROGA Aug 07, 2018 09:36
[2018-08-07] MEDS: cefTRIAXone IV Push 1 GM VIAL. IVP SCH (10:34)
[2018-08-07 11:00] VITALS: BP 111/62
[2018-08-07] MEDS ORDERED: HYDROcodone/APAP 5/325MG 1 TAB TABLET PO PRN (11:45)
[2018-08-07] MEDS ORDERED: SENNOSIDES/DOCUSATE 8.6/50MG TABLET. PO PRN (11:45)
[2018-08-07] MEDS ORDERED: ONDANSETRON PF 4 MG/2 ML VIAL. IV PRN (11:45)
[2018-08-07] MEDS ORDERED: POLYETHYLENE GLYCOL 3350 17 GM PACKET. PO PRN (11:45)
[2018-08-07] MEDS: MORPHINE SULFATE 2 MG/ML VIAL. IV PRN (11:51)
--- NOTE | 2018-08-07 12:16 | NUR ---
SW following. Discussed with RN, pt is from out of town. RN advised no SW needs at this time. SW will continue to follow.
[2018-08-07] MEDS ORDERED: POTASSIUM CHLORIDE 20 MEQ TABLET.ER. PO ONE (13:15)
[2018-08-07 15:00] VITALS: BP 111/59
[2018-08-07 19:00] VITALS: BP 125/74
[2018-08-07 23:00] VITALS: BP 115/72
[2018-08-08 03:00] VITALS: BP 108/69
[2018-08-08] MEDS: MORPHINE SULFATE 2 MG/ML VIAL. IV PRN (03:13)
[2018-08-08] MEDS: IV NORMAL SALINE 1000ML BAG 1,000 ML IV SCH (06:18)
[2018-08-08 07:00] VITALS: BP 124/71
[2018-08-08] MEDS: PANTOPRAZOLE IV PUSH 40 MG VIAL. IVP SCH (07:39)
--- NOTE | 2018-08-08 07:56 | PDOC ---
PROGRESS NOTES Chief Complaint Chief Complaint Vomiting, abd pain, ?syncope Leukocytosis Abnormal CT Occasional heartburn S/p cholecystectomy History of Present Illness History of Present Illness 33 y/o female admitted through ER. From [place] - visiting family in area, present. Lunch from [employer] day prior to admit, felt a little ill throughout the afternoon, Tums helped. Then ate pizza for dinner. Awoke during the night, significant vomiting associated w/ upper/mid abdominal pain, radiated bilaterally to back. She "kept passing out" during this which apparently is not unusual for her when in pain. Recalls normal EKG within the past year. Occasional heartburn related to certain foods. No dysphagia. After cholecystectomy (for stones), had n/v and diarrhea. No hematemesis, hematochezia , or melena. Last BM was normal day prior to admit - probiotics help keep her regular. Intentionally lost 8 pounds over the past month by avoiding carbs. No previous EGD or colonoscopy. No liver or pancreas history. PRN ibuprofen use for menstrual cramps and headaches. Labs significant for elevated WBC. CT noted possible enteritis. Looks like was given Flagyl in the ER and Cipro ordered, but changed to Rocephin after she developed a facial rash. Feeling better today. Tolerating clears w/o vomiting though has some nausea. Says not drinking a whole lot. Upper abd pain is better. No stools. has questions about IBS vs IBD. Facial rash is much better. Mag was low and K was low, replacement completed Plan: ADAT F/u GI recs Transition to oral pain medications Possible discharge later today, early tomorrow morning. Vitals Vitals Vital Signs Date Time Temp Pulse Resp B/P (MAP) Pulse Ox O2 Delivery O2 Flow Rate FiO2 08/08/18 03:13 Room Air 08/08/18 03:00 97.9 68 16 108/69 (82) 97 97.9 Physical Exam General: Alert, Oriented X3, Cooperative, mild distress Heart: Regular rate, Normal S1, Normal S2, No murmurs, Gallops Lungs: Clear Abdomen: Normal bowel sounds, Soft, No hepatosplenomegaly, No masses, Other ( Mild LLQ tender) Extremities: No clubbing, No cyanosis, No edema, Normal pulses Skin: No rashes, No breakdown, No significant lesion Assessment and Plan Assessmemt and Plan Problems Medical Problems: (1) Enteritis Status: Acute (2) Intractable abdominal pain Status: Acute (3) Nausea & vomiting Status: Acute Comment Review of Relevant I have reviewed the following items lupe (where applicable) has been applied. Labs Laboratory Tests Test 08/06/18 21:01 08/07/18 02:35 Urine Collection Type Unknown Urine Color Yellow Urine Clarity Cloudy Urine pH 5.5 Urine Specific [place] >=1.030 Urine Protein Negative mg/dL (NEG-TRACE) Urine Glucose (UA) Negative mg/dL (NEG) Urine Ketones (Stick) 15 mg/dL (NEG) Urine Blood Negative (NEG) Urine Nitrite Negative (NEG) Urine Bilirubin Small (NEG) Urine Urobilinogen Dipstick 1.0 mg/dL (0.2 mg/dL) Urine Leukocyte Esterase Negative (NEG) Urine RBC 1-2 /HPF (0-2) Urine WBC 1-4 /HPF (0-4) Urine Squamous Epithelial Cells Many /LPF Urine Bacteria Few /HPF (0-FEW) Urine Mucus Marked /LPF White Blood Count 8.1 x10^3/uL (4.0-11.0) Red Blood Count 3.76 x10^6/uL (3.50-5.40) Hemoglobin 11.6 g/dL (12.0-15.5) Hematocrit 34.4 % (36.0-47.0) Mean Corpuscular Volume 91 fL (79-100) Mean Corpuscular Hemoglobin 31 pg (25-35) Mean Corpuscular Hemoglobin Concent 34 g/dL (31-37) Red Cell Distribution Width 13.1 % (11.5-14.5) Platelet Count 208 x10^3/uL (140-400) Sodium Level 143 mmol/L (136-145) Potassium Level 3.2 mmol/L (3.5-5.1) Chloride Level 107 mmol/L (98-107) Carbon Dioxide Level 28 mmol/L (21-32) Anion Gap 8 (6-14) Blood Urea Nitrogen 8 mg/dL (7-20) Creatinine 0.8 mg/dL (0.6-1.0) Estimated GFR (Cockcroft-Gault) 83.7 BUN/Creatinine Ratio 10 (6-20) Glucose Level 94 mg/dL (70-99) Calcium Level 7.6 mg/dL (8.5-10.1) Magnesium Level 1.8 mg/dL (1.8-2.4) Total Bilirubin 0.6 mg/dL (0.2-1.0) Aspartate Amino Transf (AST/SGOT) 18 U/L (15-37) Alanine Aminotransferase (ALT/SGPT) 24 U/L (14-59) Alkaline Phosphatase 54 U/L (46-116) Total Protein 6.0 g/dL (6.4-8.2) Albumin 2.8 g/dL (3.4-5.0) Albumin/Globulin Ratio 0.9 (1.0-1.7) Medications Current Medications Sodium Chloride 1,000 ml @ 1,000 mls/hr 1X ONCE IV Last administered on at 06:20; Start 08/06/18 at 06:30; Stop 08/06/18 at 07:29; Status DC Ondansetron HCl (Zofran) 4 mg 1X ONCE IV Last administered on 08/06/18at 06:18 ; Start 08/06/18 at 06:30; Stop 08/06/18 at 06:31; Status DC Fentanyl Citrate (Fentanyl 2ml Vial) 50 mcg 1X ONCE IV Last administered on at 06:19; Start 08/06/18 at 06:30; Stop 08/06/18 at 06:31; Status DC Iohexol (Omnipaque 300 Mg/ml) 75 ml 1X ONCE IV Last administered on 08/06/18at 07:00; Start 08/06/18 at 07:00; Stop 08/06/18 at 07:01; Status DC Info (CONTRAST GIVEN -- Rx MONITORING) 1 each PRN DAILY PRN MC SEE COMMENTS; Start 08/06/18 at 06:45; Stop 08/08/18 at 06:44; Status DC Fentanyl Citrate (Fentanyl 2ml Vial) 75 mcg 1X ONCE IV Last administered on at 07:10; Start 08/06/18 at 07:00; Stop 08/06/18 at 07:01; Status DC Morphine Sulfate (Morphine Sulfate) 4 mg 1X ONCE IV Last administered on at 08:25; Start 08/06/18 at 08:30; Stop 08/06/18 at 08:31; Status DC Metronidazole 100 ml @ 100 mls/hr 1X ONCE IV Last administered on 08/06/18 09:25; Start 08/06/18 at 08:45; Stop 08/06/18 at 09:44; Status DC Ondansetron HCl (Zofran) 8 mg 1X ONCE IV Last administered on 08/06/18 09:22 ; Start 08/06/18 at 09:30; Stop 08/06/18 at 09:31; Status DC Ondansetron HCl (Zofran) 4 mg PRN Q8HRS PRN IV NAUSEA/VOMITING Last administered on 08/07/18 07:27; Start 08/06/18 at 09:15; Stop 08/07/18 at 09:14 ; Status DC Morphine Sulfate (Morphine Sulfate) 4 mg PRN Q3HRS PRN IV PAIN Last administered on 08/07/18 07:45; Start 08/06/18 at 09:15; Stop 08/07/18 at 09:14 ; Status DC Sodium Chloride 1,000 ml @ 100 mls/hr Q10H IV Last administered on 08/07/18 06:03; Start 08/06/18 at 09:15; Stop 08/07/18 at 09:14; Status DC Ciprofloxacin/ Dextrose 200 ml @ 200 mls/hr 1X ONCE IV Last administered on 14:03; Start 08/06/18 at 09:30; Stop 08/06/18 at 10:29; Status DC Ceftriaxone Sodium (Rocephin) 1 gm Q24H IVP Last administered on 08/07/18at 10: 34; Start 08/06/18 at 11:00 Pantoprazole Sodium (PROTONIX VIAL for IV PUSH) 40 mg DAILYAC IVP Last administered on 08/08/18at 07:39; Start 08/06/18 at 12:30 Lactobacillus Rhamnosus (Culturelle) 1 cap BID PO Last administered on at 20:26; Start 08/06/18 at 21:00 Ondansetron HCl (Zofran) 4 mg PRN Q6HRS PRN IV NAUSEA/VOMITING Last administered on 08/08/18at 03:12; Start 08/07/18 at 11:45 Morphine Sulfate (Morphine Sulfate) 2 mg PRN Q2HR PRN IV PAIN Last administered on 08/08/18at 03:13; Start 08/07/18 at 11:45 Acetaminophen/ Hydrocodone Bitart (Lortab 5/325) 1 tab PRN Q4HRS PRN PO PAIN; Start 08/07/18 at 11:45 Senna/Docusate Sodium (Senna Plus) 2 tab PRN BID PRN PO CONSTIPATION 2ND CHOICE ; Start 08/07/18 at 11:45 Polyethylene Glycol (miraLAX PACKET) 17 gm PRN DAILY PRN PO CONSTIPATION 1ST CHOICE; Start 08/07/18 at 11:45; Status Cancel Sodium Chloride 1,000 ml @ 100 mls/hr Q10H IV Last administered on 08/08/18at 06:18; Start 08/07/18 at 12:00 Potassium Chloride (Klor-Con) 40 meq 1X ONCE PO Last administered on at 13:34; Start 08/07/18 at 13:15; Stop 08/07/18 at 13:16; Status DC Polyethylene Glycol (miraLAX PACKET) 17 gm DAILY PO ; Start 08/08/18 at 09:00 Vitals/I & O Vital Sign - Last 24 Hours 08/07/18 08/07/18 08/07/18 08/07/18 08:15 11:00 11:51 12:46 Temp 98.5 98.5 Pulse 66 Resp 18 14 18 18 B/P (MAP) 111/62 (78) Pulse Ox 94 O2 Delivery Room Air Room Air Room Air Room Air 08/07/18 08/07/18 08/07/18 08/07/18 15:00 19:00 19:57 23:00 Temp 98.7 98.6 97.9 98.7 98.6 97.9 Pulse 79 76 82 Resp 12 18 18 B/P (MAP) 111/59 (76) 125/74 (91) 115/72 (86) Pulse Ox 94 97 95 O2 Delivery Room Air Room Air 08/08/18 08/08/18 03:00 03:13 Temp 97.9 97.9 Pulse 68 Resp 16 B/P (MAP) 108/69 (82) Pulse Ox 97 O2 Delivery Room Air Intake and Output 08/07/18 08/07/18 08/08/18 15:00 23:00 07:00 Intake Total 1560 ml 540 ml 120 ml Output Total 1200 ml 1 ml Balance 360 ml 540 ml 119 ml ISABELLA GIMENEZ MD Aug 08, 2018 07:55
[2018-08-08] MEDS: LACTOBACILLUS RHAMNOSUS GG 1 CAPSULE. PO SCH (08:28)
[2018-08-08] MEDS ORDERED: POLYETHYLENE GLYCOL 3350 17 GM PACKET. PO SCH (09:00)
[2018-08-08] MEDS ORDERED: MAGNESIUM SULFATE 2GM 50 ML IV ONE (09:00)
[2018-08-08 09:45] LABS: ALBUMIN 3.2 g/dL (3.4-5.0); ALBUMIN/GLOBULIN RATIO 0.9 (1.0-1.7); CALCIUM 8.5 mg/dL (8.5-10.1); CREATININE 0.8 mg/dL (0.6-1.0); GFR 83.7; POTASSIUM 3.9 mmol/L (3.5-5.1); TOTAL BILIRUBIN 0.4 mg/dL (0.2-1.0); TOTAL PROTEIN 6.7 g/dL (6.4-8.2)
[2018-08-08] MEDS ORDERED: BISACODYL 5 MG TABLET.DR. PO PRN (10:30)
--- NOTE | 2018-08-08 10:30 | PDOC ---
Subjective: Subjective: Feels better, tolerating regular diet. No n/v. Had some upper abd pain overnight (improved from previous) - would have preferred to take PO pain med but RN gave her IV. No stools yet but continues to pass gas. Feels well enough to go home. Objective: Vital Signs: Vital Signs Date Time Temp Pulse Resp B/P (MAP) Pulse Ox O2 Delivery O2 Flow Rate FiO2 08/08/18 07:00 97.8 71 18 124/71 (88) 95 Room Air 97.8 Labs: Laboratory Tests Test 08/08/18 09:05 Sodium Level 144 mmol/L Potassium Level 3.9 mmol/L Chloride Level 108 mmol/L Carbon Dioxide Level 29 mmol/L Anion Gap 7 Blood Urea Nitrogen 3 mg/dL Creatinine 0.8 mg/dL Estimated GFR (Cockcroft-Gault) 83.7 BUN/Creatinine Ratio 4 Glucose Level 103 mg/dL Calcium Level 8.5 mg/dL Total Bilirubin 0.4 mg/dL Aspartate Amino Transf (AST/SGOT) 17 U/L Alanine Aminotransferase (ALT/SGPT) 28 U/L Alkaline Phosphatase 59 U/L Total Protein 6.7 g/dL Albumin 3.2 g/dL Albumin/Globulin Ratio 0.9 PE: GEN: NAD - eating eggs and toast LUNGS: CTAB HEART: RRR ABD: NABS, soft, non-distended, not particularly tender NEURO/PSYCH: A & O 3 A/P: Nausea, upper abd discomfort - resolving Abnormal CT w/ enteritis -- Continues to improve, now tolerating regular diet. Discussed continuing daily Miralax, particularly if to continue pain med after discharge. Okay to DC per GI. Follow-up w/ gastroenterology in [place] if needed. MARLA QUIROGA Aug 08, 2018 10:30
[2018-08-08 10:37] VITALS: BP 135/85
--- NOTE | 2018-08-08 11:05 | NUR ---
SW following. Discussed with RN, no SW needs. Pt likely to discharge home today with .
[2018-08-08] MEDS: cefTRIAXone IV Push 1 GM VIAL. IVP SCH (11:38)
[2018-08-08] MEDS ORDERED: MAGNESIUM CITRATE 296 ML SOLUTION. PO ONE (12:00)
[2018-08-08] MEDS ORDERED: LACT1CAP19 PO (12:11)
[2018-08-08] MEDS ORDERED: Pantoprazole PO (12:11)
[2018-08-08] MEDS ORDERED: BISA5TAB4 PO (12:11)
[2018-08-08] MEDS ORDERED: HYDR-2761 PO (12:16)
--- NOTE | 2018-08-08 12:17 | PDOC3 ---
Discharge Summary Visit Information Date of Admission: Aug 06, 2018 Date of Discharge: Aug 08, 2018 Admitting Diagnosis: Enteritis Final Diagnosis Problems Medical Problems: (1) Enteritis Status: Acute (2) Intractable abdominal pain Status: Acute (3) Nausea & vomiting Status: Acute Brief Hospital Course Allergies Allergies Coded Allergies Type Severity Reaction Last Updated Verified No Known Drug Allergies 08/06/18 No Vital Signs Vital Signs Date Time Temp Pulse Resp B/P (MAP) Pulse Ox O2 Delivery O2 Flow Rate FiO2 08/08/18 10:37 98.3 73 18 135/85 (102) 99 Room Air 98.3 Lab Results Laboratory Tests Test 08/06/18 21:01 08/07/18 02:35 08/08/18 09:05 Urine Collection Type Unknown Urine Color Yellow Urine Clarity Cloudy Urine pH 5.5 Urine Specific [place] >=1.030 Urine Protein Negative mg/dL (NEG-TRACE) Urine Glucose (UA) Negative mg/dL (NEG) Urine Ketones (Stick) 15 mg/dL (NEG) Urine Blood Negative (NEG) Urine Nitrite Negative (NEG) Urine Bilirubin Small (NEG) Urine Urobilinogen Dipstick 1.0 mg/dL (0.2 mg/dL) Urine Leukocyte Esterase Negative (NEG) Urine RBC 1-2 /HPF (0-2) Urine WBC 1-4 /HPF (0-4) Urine Squamous Epithelial Cells Many /LPF Urine Bacteria Few /HPF (0-FEW) Urine Mucus Marked /LPF White Blood Count 8.1 x10^3/uL (4.0-11.0) Red Blood Count 3.76 x10^6/uL (3.50-5.40) Hemoglobin 11.6 g/dL (12.0-15.5) Hematocrit 34.4 % (36.0-47.0) Mean Corpuscular Volume 91 fL (79-100) Mean Corpuscular Hemoglobin 31 pg (25-35) Mean Corpuscular Hemoglobin Concent 34 g/dL (31-37) Red Cell Distribution Width 13.1 % (11.5-14.5) Platelet Count 208 x10^3/uL (140-400) Sodium Level 143 mmol/L (136-145) 144 mmol/L (136-145) Potassium Level 3.2 mmol/L (3.5-5.1) 3.9 mmol/L (3.5-5.1) Chloride Level 107 mmol/L (98-107) 108 mmol/L (98-107) Carbon Dioxide Level 28 mmol/L (21-32) 29 mmol/L (21-32) Anion Gap 8 (6-14) 7 (6-14) Blood Urea Nitrogen 8 mg/dL (7-20) 3 mg/dL (7-20) Creatinine 0.8 mg/dL (0.6-1.0) 0.8 mg/dL (0.6-1.0) Estimated GFR (Cockcroft-Gault) 83.7 83.7 BUN/Creatinine Ratio 10 (6-20) 4 (6-20) Glucose Level 94 mg/dL (70-99) 103 mg/dL (70-99) Calcium Level 7.6 mg/dL (8.5-10.1) 8.5 mg/dL (8.5-10.1) Magnesium Level 1.8 mg/dL (1.8-2.4) Total Bilirubin 0.6 mg/dL (0.2-1.0) 0.4 mg/dL (0.2-1.0) Aspartate Amino Transf (AST/SGOT) 18 U/L (15-37) 17 U/L (15-37) Alanine Aminotransferase (ALT/SGPT) 24 U/L (14-59) 28 U/L (14-59) Alkaline Phosphatase 54 U/L (46-116) 59 U/L (46-116) Total Protein 6.0 g/dL (6.4-8.2) 6.7 g/dL (6.4-8.2) Albumin 2.8 g/dL (3.4-5.0) 3.2 g/dL (3.4-5.0) Albumin/Globulin Ratio 0.9 (1.0-1.7) 0.9 (1.0-1.7) Laboratory Tests Test 08/08/18 09:05 Sodium Level 144 mmol/L (136-145) Potassium Level 3.9 mmol/L (3.5-5.1) Chloride Level 108 mmol/L (98-107) Carbon Dioxide Level 29 mmol/L (21-32) Anion Gap 7 (6-14) Blood Urea Nitrogen 3 mg/dL (7-20) Creatinine 0.8 mg/dL (0.6-1.0) Estimated GFR (Cockcroft-Gault) 83.7 BUN/Creatinine Ratio 4 (6-20) Glucose Level 103 mg/dL (70-99) Calcium Level 8.5 mg/dL (8.5-10.1) Total Bilirubin 0.4 mg/dL (0.2-1.0) Aspartate Amino Transf (AST/SGOT) 17 U/L (15-37) Alanine Aminotransferase (ALT/SGPT) 28 U/L (14-59) Alkaline Phosphatase 59 U/L (46-116) Total Protein 6.7 g/dL (6.4-8.2) Albumin 3.2 g/dL (3.4-5.0) Albumin/Globulin Ratio 0.9 (1.0-1.7) Brief Hospital Course 33 y/o female admitted through ER. From [place] - visiting family in area, present. Lunch from [employer] day prior to admit, felt a little ill throughout the afternoon, Tums helped. Then ate pizza for dinner. Awoke during the night, significant vomiting associated w/ upper/mid abdominal pain, radiated bilaterally to back. She "kept passing out" during this which apparently is not unusual for her when in pain. Recalls normal EKG within the past year. Occasional heartburn related to certain foods. No dysphagia. After cholecystectomy (for stones), had n/v and diarrhea. No hematemesis, hematochezia , or melena. Last BM was normal day prior to admit - probiotics help keep her regular. Intentionally lost 8 pounds over the past month by avoiding carbs. No previous EGD or colonoscopy. No liver or pancreas history. PRN ibuprofen use for menstrual cramps and headaches. Labs significant for elevated WBC. CT noted possible enteritis. Looks like was given Flagyl in the ER and Cipro ordered, but changed to Rocephin after she developed a facial rash. Feeling better today. Tolerating clears w/o vomiting though has some nausea. Says not drinking a whole lot. Upper abd pain is better. No stools. has questions about IBS vs IBD. Facial rash is much better. Mag was low and K was low, replacement completed Plan: ADAT F/u GI recs Transition to oral pain medications Possible discharge later today Vomiting, abd pain, ?syncope Leukocytosis Abnormal CT Occasional heartburn S/p cholecystectomy Greater than 30 minutes spent on discharge including education Discharge Information Condition at Discharge: Improved Follow Up: Weeks (2) Disposition/Orders: D/C to Home Scheduled Lactobacillus Rhamnosus Gg (Culturelle) 1 Each Cap.sprink, 1 CAP PO BID for Colon asya for 30 Days, #60 Prescribed by: ISABELLA GIMENEZ MD on 08/08/181 [Pantoprazole] 40 MG TABLET.DR, 40 MG PO BIDAC for Reflux for 30 Days, #60 Prescribed by: ISABELLA GIMENEZ MD on 08/08/181 Scheduled PRN Bisacodyl (Bisacodyl) 5 Mg Tablet.dr, 10 MG PO PRN DAILY PRN for CONSTIPATION 3RD CHOICE for 10 Days, #10 Prescribed by: ISABELLA GIMENEZ MD on 08/08/181210 ISABELLA GIMENEZ MD Aug 08, 2018 12:17
--- NOTE | 2018-08-08 13:55 | NUR ---
pt discharged home with . scripts for lortab, protonix, dulcolax, probiotic given. pt instructed to find a PCP and establish care with a GI specialist.
[2018-08-08] MEDS ORDERED: PANTOPRAZOLE 40 MG TABLET.DR. PO SCH (16:30)
== END 2018-08-08 14:10 | disposition home or self-care (01) | DRG 392 ==
LOC: ER 05:17 → 5 SOUTH 09:18
PROVIDERS: ADMIT Internal Medicine; ATTEND Internal Medicine
DX: K52.9 Noninfective gastroenteritis and colitis, unspecified (principal); R73.9 Hyperglycemia, unspecified; E87.6 Hypokalemia; F41.9 Anxiety disorder, unspecified; N94.6 Dysmenorrhea, unspecified; Z80.9 Family history of malignant neoplasm, unspecified; Z82.49 Family history of ischemic heart disease and other diseases of the circulatory system; Z90.49 Acquired absence of other specified parts of digestive tract; Z79.899 Other long term (current) drug therapy
CPT/HCPCS: 36415; 74177; 80053; 81001; 83690; 83735; 85007; 85025; 85027; 93005; 96361; 96365; 96375; 96376; C9113; J0696; J0744; J2270; J2405; J3010; J3475; J3490; J7030; Q9967; 99285-25